=== PATIENT | female | born 1995 | race Two or more races ===

== ENCOUNTER 2021-12-19 18:53 | Emergency (ER) | payer OTHER ==
[~2021-12-19] VITALS: Ht 165.1 cm; Wt 72.6 kg
== END 2021-12-19 22:31 | disposition home or self-care (01) ==
LOC: ER 18:53
DX: S09.8XXA Other specified injuries of head, initial encounter (principal); V89.2XXA Person injured in unspecified motor-vehicle accident, traffic, initial encounter